=== PATIENT | female | born 1975 ===

== ENCOUNTER 2019-09-13 00:20 | Emergency (ER) | payer OTHER ==
[~2019-09-13] VITALS: Ht 162.6 cm; Wt 105.0 kg
[2019-09-13 00:24] VITALS: BP 147/94
--- NOTE | 2019-09-13 01:23 | NUR ---
PT AMBULATES TO ROOM FROM LOBBY WITH STEADY GAIT.
[2019-09-13] MEDS ORDERED: ONDANSETRON ODT 4 MG ONE (01:51)
[2019-09-13] MEDS ORDERED: KETOROLAC 30 MG/1 ML ONE ×2 (01:51→01:52)
--- NOTE | 2019-09-13 01:59 | NUR ---
PT MEDICATED PER SEP FOR PAIN. PT PROVIDED WATER PER PT REQUEST WITH VERBAL ORDERS FROM PA. PT RESTING IN [facility] AT THIS TIME;
[2019-09-13] MEDS ORDERED: KETOROLAC 30 MG/1 ML IM ONE (02:00)
[2019-09-13] MEDS ORDERED: METOCLOPRAMIDE 5 MG/ML, 2ML ONE (02:35)
[2019-09-13] MEDS ORDERED: DIPHENHYDRAMINE 50 MG/ML, 1ML ONE (02:35)
[2019-09-13] MEDS ORDERED: SODIUM CHLORIDE 0.9%, 500ML IVBOLUS ONE (03:00)
[2019-09-13] MEDS ORDERED: METOCLOPRAMIDE 5 MG/ML, 2ML IVPush ONE (03:00)
[2019-09-13] MEDS ORDERED: DIPHENHYDRAMINE 50 MG/ML, 1ML IVPush ONE (03:00)
--- NOTE | 2019-09-13 03:53 | NUR ---
PT REPORTS FEELING MUCH BETTER. PT IS BEING D/C WITH D/C SUMMARY AND SCRIPTS. ALL QUESTIONS ANSWERED. PT AMBULATES TO REGISTRATION DESK WITH STEADY GAIT FOR D/C HOME. PT DENIES ANY OTHER NEEDS PERTAINING TO THIS VISIT. IV D/C WITH TIP INTACT PRIOR TO PT D/C.
== END 2019-09-13 03:59 | disposition home or self-care (01) ==
LOC: ED 03:26
DX: R51 Headache (principal); R20.2 Paresthesia of skin; R00.0 Tachycardia, unspecified; K21.9 Gastro-esophageal reflux disease without esophagitis
CPT/HCPCS: 96372; 96374; 96375; 99284; J1200; J1885; J2765; J7040; 96361